=== PATIENT | male | born 1960 | race Caucasian/White ===

== ENCOUNTER 2019-03-15 19:19 | Emergency (ER) | payer OTHER ==
[~2019-03-15] VITALS: Ht 182.9 cm; Wt 108.9 kg
--- NOTE | ~2019-03-15 | EKG ---
[place] [address] ELECTROCARDIOGRAM REPORT Name: MARCELLE CADE [id number] Admission: 03/15/19 Attend Phys: Discharge: 03/15/19 Date of : 56 Date of Service: 03/15/192047 Report #: [id number] THIS REPORT FOR: cc: FAM - No family physician/PCP CARLOS - No family physician/PCP Shelby Ryan MD ~ THIS REPORT FOR: //name// [facility] ED Test Date: 2019-03-15 Test Time: 20:48:39 Pat Name: MARCELLE CADE Department: Room: Gender: M Neurological Surgeon: YUDI : 1960 Requested By: Velma Luke Order Number: [id number] MD: Measurements Intervals [place] Rate: 93 P: 8 [place]: 125 QRS: 44 QRSD: 102 T: 57 QT: 352 QTc: 438 Interpretive Statements Sinus rhythm Borderline T wave abnormalities No previous ECG available for comparison [email or web address] By: 47 2048 Epiphany Epiphany, /EPI
[2019-03-15] MEDS ORDERED: INDOCIN50 MG PO (19:49)
[2019-03-15 20:16] LABS: INFLUENZA A ANTIGEN Negative (Negative); INFLUENZA B ANTIGEN Negative (Negative)
[2019-03-15 20:51] LABS: ABSOLUTE EOSINOPHILS 0.1 thou/uL (0.0-0.7); ABSOLUTE LYMPHOCYTES 1.2 thou/uL (0.8-5.3); ABSOLUTE MONOCYTES 0.6 thou/uL (0.0-1.2); ABSOLUTE NEUTROPHILS 8.2 thou/uL (1.6-8.1); BASOPHILS 0.3 %; EOSINOPHILS 0.6 %; HEMATOCRIT 42.8 % (42.0-52.0); HEMOGLOBIN 15.4 gm/dL (14.0-18.0); LYMPHOCYTES 11.8 %; MCH 32.9 pg (26.0-34.0); MCHC 35.9 g/dL (28.0-37.0); MCV 91.6 fL (80.0-100.0); MONOCYTES 5.9 %; MPV 8.3 fl. (7.2-11.1); NUCLEATED RBCS 0 /100WBC; PLATELET COUNT* 208 thou/uL (150-400); POLYS 81.4 %; RBC 4.68 mil/uL (4.50-6.00); RDW-CV 14.5 % (10.5-14.5); WBC 10.1 thou/uL (4.0-11.0)
[2019-03-15 21:00] LABS: CALCIUM 8.6 mg/dL (8.5-10.1)
[2019-03-15 21:11] LABS: ALBUMIN 3.6 g/dL (3.4-5.0); TOTAL BILIRUBIN 0.5 mg/dL (<0.1-1.0); TOTAL PROTEIN 7.6 g/dL (6.4-8.2)
[2019-03-15] MEDS ORDERED: DOXYCYCLINE 10100 MG PO (22:01)
[2019-03-15] MEDS ORDERED: MEDROLDOSEPACK PO (22:01)
[2019-03-15] MEDS ORDERED: PROMETH-CODEIN 65 ML PO (22:01)
[2019-03-15] MEDS ORDERED: VENTOLIN HFA 1818 GM INH (22:01)
[2019-03-15 22:14] VITALS: BP 135/75
== END 2019-03-15 22:15 | disposition home or self-care (01) ==
LOC: M.ERS 19:19
PROVIDERS: Emergency Medicine; Nurse Practitioner Family
DX: J20.9 Acute bronchitis, unspecified (principal)